=== PATIENT | female | born 1980 | race Asian ===

== ENCOUNTER → 2023-12-29 15:45 | Outpatient (REF) | payer OTHER, SELFPAY | LOC: WDC 15:45 | PROVIDERS: ATTENDING PHYSICIAN Obstetrics & Gynecology; FAMILY PHYSICIAN Family Medicine | DX: Z12.31 Encounter for screening mammogram for malignant neoplasm of breast (principal) | CPT/HCPCS: 77063; 77067 ==

== ENCOUNTER → 2024-01-06 09:35 | Outpatient (REF) | payer OTHER, SELFPAY | LOC: WDC 09:35 | PROVIDERS: ATTENDING PHYSICIAN Obstetrics & Gynecology; FAMILY PHYSICIAN Family Medicine | DX: R92.8 Other abnormal and inconclusive findings on diagnostic imaging of breast (principal) | CPT/HCPCS: 76642 ==

== ENCOUNTER → 2024-03-31 08:55 | Outpatient (REF) | payer OTHER, SELFPAY | LOC: WDC 08:55 | PROVIDERS: ATTENDING PHYSICIAN Nurse Practitioner Women's Health; FAMILY PHYSICIAN Family Medicine | DX: N63.20 Unspecified lump in the left breast, unspecified quadrant (principal); N63.23 Unspecified lump in the left breast, lower outer quadrant | CPT/HCPCS: 76642 ==

== ENCOUNTER → 2024-04-02 10:23 | Outpatient (REF) | payer OTHER, SELFPAY | LOC: WDC 10:23 | PROVIDERS: ATTENDING PHYSICIAN Family Medicine | DX: N63.20 Unspecified lump in the left breast, unspecified quadrant (principal); N63.23 Unspecified lump in the left breast, lower outer quadrant | CPT/HCPCS: 19000; 76942 ==

== ENCOUNTER 2025-05-13 13:04 | Emergency (ER) | payer OTHER, SELFPAY ==
[2025-05-13 13:13] VITALS: BP 115/66
--- NOTE | 2025-05-13 13:21 | ED.GENMED ---
History of Present Illness
General
Chief Complaint: Abdominal Pain
Time Seen by Provider: 05/13/25 13:21
History of Present Illness
History of Present Illness:
FOCUSED PAST MEDICAL HISTORY
- No significant past medical history
REVIEW OF OLD RECORDS
- The patient was seen here in June 2023 with abdominal pain at that time there was no acute abnormality noted on CT imaging
Note:
CHIEF COMPLAINT(S)
Abdominal pain lasting for approximately 10 days.
HISTORY OF PRESENT ILLNESS
The patient is a 44-year-old female presenting with abdominal pain that began approximately 10 days ago. The pain appeared suddenly and has been predominantly located in the lower abdomen, with marked tenderness especially on the left side. The
patient reports that the pain intensifies an hour after eating, subsides within half an hour, and then returns two to three hours later. She has a history of constipation, noting a bowel movement this morning but with persistent pain.
The patient referenced two events around the onset of her pain: heightened coffee intake while attending a conference and participating in a Pilates session. Her diet was reportedly irregular during this time. The patient denies any vomiting or
diarrhea, and reports a slight constipation alleviation attempts. She associates the possibility of gastritis due to lifestyle factors. She also mentions exacerbation following physical exertion, such as walking six miles.
No relevant diagnosis of inflammatory bowel disease was noted in the family history. The patient acknowledges premenopausal bleeding inconsistencies, which have resulted in sporadic bleeding events, including one starting yesterday. There are no
symptoms indicative of a urinary tract infection, such as frequent urination or burning sensation during urination.
PAST MEDICAL AND SURIGICAL HISTORY
The patient reports overall good health and no previous abdominal surgeries.
PHYSICAL EXAM
General: Alert, the patient appears somewhat uncomfortable at times
Skin: Warm, dry.
Head: Normocephalic, atraumatic.
Neck: Supple, trachea midline.
Eyes, Ears, Nose, Mouth and Throat: Oral mucosa moist.
Cardiovascular: Normal peripheral perfusion, No edema.
Respiratory: Respirations are non-labored.
Gastrointestinal: Abdomen is nondistended, mild diffuse tenderness
Back: Normal range of motion, Normal alignment. Questionable left CVA tenderness
Musculoskeletal: Normal range of motion, normal strength.
Neurological: Alert and oriented to person, place, time, and situation, No focal neurological deficit observed.
Psychiatric: Cooperative, appropriate mood & affect.
PLAN
1. Draw blood for laboratory analysis.
2. Proceed with CT scan and consider use of oral contrast to enhance visibility.
3. Administer non-narcotic analgesic, such as Ketorolac, for pain management.
4. Provide intravenous fluids to maintain hydration.
DIFFERENTIAL DIAGNOSIS
The Differential Diagnosis includes, in no particular order and is not limited to:
1. Gastritis
2. Abdominal strain
3. Constipation-related discomfort
4. Urinary tract infection
5. Crohn�s disease
6. Ulcerative colitis
7. Diverticulitis
8. Ovarian cysts
9. Endometriosis
10. Irritable bowel syndrome
RADIOLOGY
- CT imaging obtained which shows right sided ovarian cyst measuring 4 cm
LABS
- White count 4.8, hemoglobin 10.3, chemistries including lipase and LFTs normal and hCG is negative
UPDATE
-SUMMARY OF ENCOUNTER
The patient, a 44-year-old female, presented with abdominal pain lasting approximately 10 days, focusing primarily on the lower abdomen with tenderness on the left side. Upon evaluation in the emergency department, imaging revealed a 4 cm ovarian
cyst on the right side, potentially ruptured and causing discomfort. An increase in stool amount and constipation was also noted. The patients abdominal pain began following heightened coffee intake and participation in a Pilates session. A blood
test revealed a hemoglobin drop to 10.7 g/dL, prompting considerations of possible GI bleeding; however, rectal examination did not indicate active bleeding, and no other signs typical of GI bleeding were identified. A benign approach, using
ibuprofen for pain relief, was discussed due to absence of major findings.
DISPOSITION
Discharge.
ASSESSMENT
The patients symptoms may be related to a ruptured ovarian cyst, given the significant finding of the cyst on the right side. Constipation-related discomfort could also be a contributing factor. The hemoglobin drop might relate to the patients
recent blood donation rather than an acute hemorrhage.
PLAN
The patient was advised to manage pain with [id number] ibuprofen. Recommendations were made to follow up with an LANGUAGE PATHOLOGIST for a repeated ultrasound and ongoing monitoring of the ovarian cyst. Dietary modifications were not emphasized as the pain
is likely cyst-related. The patient was advised to call her LANGUAGE PATHOLOGIST on Friday to discuss ongoing care and management.
INDEPENDENT REVIEW OF LABS AND INTERPRETATION OF TESTS
My independent review of the CBC indicated a hemoglobin level of 10.3 g/dL. The fecal occult blood test was negative, and BUN levels were not elevated, reducing the likelihood of GI bleeding.
PATIENT EDUCATION AND COUNSELING
The patient was informed about the findings of the ovarian cyst and its potential to cause pain, as well as the expected benign course of a cyst of this size. She was advised on the appropriate use of ibuprofen for pain management and the importance
of following up with her LANGUAGE PATHOLOGIST for further evaluation and potential repeat imaging.
FOLLOW-UP INSTRUCTIONS
The patient was instructed to contact her LANGUAGE PATHOLOGIST on Friday to discuss the findings and obtain follow-up recommendations. If symptoms persist or worsen, she was advised to seek medical care.
MEDICATION RECONCILIATION
Ibuprofen 600-800 mg every 8 hours as needed for pain, recommended to the patient.
MEDICAL DECISION MAKING
- Number and Complexity of Problems Addressed: Chronic conditions affecting care include ovarian cyst. Differential Diagnosis considered includes gastritis, abdominal strain, constipation-related discomfort, urinary tract infection, Crohn�s disease,
ulcerative colitis, diverticulitis, ovarian cysts, endometriosis, and irritable bowel syndrome.
- Data:
- Category 1: My independent interpretation of the CT scan revealed a 4 cm ovarian cyst on the right side. Laboratory tests reviewed included CBC and fecal occult blood test.
- Category 3: Discussion of management with the patient regarding pain management and follow-up recommendations.
- Risk: Consideration of Admission/Observation: Escalation of care including admission/observation was considered given the complexity and risk of the patients presenting complaint, exam findings, and/or their underlying comorbidities. However,
ultimately I feel the patient is safe for outpatient management with close follow-up. Reasoning: Work-up reassuring, does not reveal any acute life/organ-threatening processes, patients symptoms well controlled upon reevaluation, reexamination is
reassuring, vitals are stable, patient agreeable with discharge, reliable for follow-up.
DIAGNOSIS
- Ruptured ovarian cyst (ICD-10: N83.0)
- Anemia, unspecified (ICD-10: D64.9)
- Constipation (ICD-10: K59.00)
Past History
Past History
ED Past Medical History: None
ED Past Surgical History: None
Social History
Tobacco: Non-smoker
Alcohol: None
Personal:
Living: with family
Employment: Employed
Phy Exam
Physical Exam
Physical Exam:
See HPI
Course
Orders/Labs/Results
Orders:
Orders
05/13/25 13:31
0.9% Sodium Chloride 1000 ml [Nss] 1,000 ml IV BOLUS
Iohexol [Omnipaque] See Protocol PO NOW STA
Ketorolac [Toradol] 15 mg IV NOW STA
05/13/25 13:32
CT Abd/pel W Iv And Oral Contr Urgent
Comment:
Reason For Exam: worsening diffuse abd pain
Test Result ONCE
05/13/25 13:55
Complete Blood Count/With Diff Urgent
Comprehensive Metabolic Panel Urgent
HCG, Serum Qualitative Screen Urgent
Lipase Urgent
Abnormal Lab Results
05/13/25
13:55
Hgb 10.3 L g/dL
(12.0-16.0)
Hct 32.8 L %
(37.0-47.0)
MCV 77.4 L fL
(81.0-99.0)
MCH 24.3 L pg
(27.0-31.0)
MCHC 31.4 L g/dL
(33.0-37.0)
Glucose 101 H mg/dl
(70-99)
05/13/25 13:55
05/13/25 13:55
Vital Signs
Initial and Last Documented VS:
Initial Vital Signs
Temp Pulse Resp BP Pulse Ox
36.6 C 62 20 115/66 99
05/13/25 13:13 05/13/25 13:13 05/13/25 13:13 05/13/25 13:13 05/13/25 13:13
Last Documented Vital Signs
Temp Pulse Resp BP Pulse Ox
36.6 C 62 20 115/66 99
05/13/25 13:13 05/13/25 13:13 05/13/25 13:13 05/13/25 13:13 05/13/25 13:22
*Pulse Oximetry
SaO2: 99
Oxygen Mode of Delivery: Room air
Patient hypoxic: no
*Critical Care Note
Total Time (30-74mins, 75-104mins- exclusive of procedures): Not Applicable
ED Attending Note
-
Portions of this chart may have been created with voice recognition software.� Occasional wrong word or��sound alike� substitutions may have occurred due to the inherent limitations of voice recognition software.
Discharge Plan
Departure
Patient Disposition: Home (Routine Discharge)
Date of Disposition: 05/13/25
Time of Disposition: 18:15
Patient with high blood pressure during this ER visit?: Yes
Discharge Problem:
Ovarian cyst
Instructions: Ovarian Cyst (DC), Abdominal Pain
Prescriptions:
No Action
cyclobenzaprine 10 MG tablet
10 mg PO BIDPRN PRN (Reason: neck pain) Qty: 20 0RF
cyclobenzaprine 10 mg tablet
10 mg PO TIDPRN PRN (Reason: muscle spasm/pain) Qty: 20 0RF
Referrals:
Derick Luque MD [Family Provider, Family Practice]
Activity Restrictions/Additional Instructions:
I recommend 3-4 ogme-yoe-hyyktdg ibuprofen (Motrin) every 8 hours with food for a few days. Return here if worse. Follow-up with your LANGUAGE PATHOLOGIST. Basic blood work is normal.
CAT scan shows
1. 4.6 cm SIMPLE CYST in the RIGHT OVARY.
2. Small amount of peritoneal fluid in the pelvic cul-de-sac.
3. Small uterine leiomyoma.
4. Moderate fecal material in the transverse, descending, and sigmoid colon.
5. Mild periportal edema in the liver.
6. Mild hepatomegaly.
Interventions
Interventions:
*Risk Screen - Suicide Last Done: 05/13/25 14:15
*General Assessment Last Done: 05/13/25 13:13
*Neglect/Abuse Screening Last Done: 05/13/25 14:15
*ED- Fall Risk Assessment Last Done: 05/13/25 14:15
*ED COVID-19 Vaccine History Last Done: 05/13/25 14:15
*ED Influenza Vaccine History Last Done: 05/13/25 14:15
[facility]-Wwkj[facility]-Oxxuyaxzys Assessment Last Done: 05/13/25 14:15
Discharge Date and Time
Print Language: ARMENIAN
[2025-05-13] MEDS: OMNIPAQUE 50 ML PO (13:40)
[2025-05-13] MEDS: TORADOL 15 MG IV (13:40)
[2025-05-13] MEDS: NSS 1000 IV (13:53)
[2025-05-13 14:02] LABS: Hematocrit 32.8 % (37.0-47.0); Hemoglobin 10.3 g/dL (12.0-16.0); Mean Corp Hgb Conc. 31.4 g/dL (33.0-37.0); Mean Corpuscular Volume 77.4 fL (81.0-99.0); Nucleated Red Blood Cells % 0 %; Platelet Count 265 10^3/uL (130-400); Red Cell Dist. Width 14.2 % (11.5-14.5)
[2025-05-13 14:18] LABS: ALT (SGPT) 17 U/L (0-35); AST (SGOT) 24 U/L (14-36); Albumin 4.2 g/dl (3.5-5.0); Alkaline Phosphatase 51 U/L (38-126); Blood Urea Nitrogen 7 mg/dl (7-17); Calcium 9.1 mg/dl (8.4-10.2); Carbon Dioxide 27 mmol/L (22-30); Chloride 107 mmol/L (98-107); Glucose 101 mg/dl (70-99); Lipase 120 U/L (23-300); Potassium 4.7 mmol/L (3.5-5.1); Sodium 139 mmol/L (135-145); Total Protein 7.1 g/dl (6.3-8.2); eGFR > 60.00
[2025-05-13 14:24] LABS: HCG, Serum Qualitative Screen Negative
== END 2025-05-13 18:44 | disposition home or self-care (01) ==
LOC: EMR 13:04
PROVIDERS: EMERGENCY PHYSICIAN Emergency Medicine; FAMILY PHYSICIAN Family Medicine
DX: N83.201 Unspecified ovarian cyst, right side (principal); D64.9 Anemia, unspecified; K59.00 Constipation, unspecified
CPT/HCPCS: 99284; 96374; 96361; 74177; 80053; 83690; 84703; 85025; Q9967

== ENCOUNTER → 2025-08-01 15:14 | Outpatient (REF) | payer OTHER, SELFPAY | LOC: RAD 15:14 | PROVIDERS: ATTENDING PHYSICIAN Nurse Practitioner Obstetrics & Gynecology; FAMILY PHYSICIAN Family Medicine | DX: N83.209 Unspecified ovarian cyst, unspecified side (principal) | CPT/HCPCS: 76830; 76856 ==